=== PATIENT | female | born 1955 | race African-American/Black ===

== ENCOUNTER 2019-07-07 23:34 | Inpatient (IN) | payer OTHER ==
[~2019-07-07] VITALS: Ht 152.4 cm; Wt 77.8 kg
--- NOTE | ~2019-07-07 | EMS ---
[facility] [address] [place] [address] EMS Patient Care Report Name: RAUL TELLES Room #: PRE RETA Lanier#: [id number] Admission: Attend Phys: Discharge: Date of : 53 Report #: [id number] THIS REPORT FOR: //name// Report Transmitted: 07/07/2019 23:38 EMS Care Summary [facility] MED-ACT Incident [id number] @ 07/07/2019 22:51 Incident Location [facility] [address] [place] [address] Patient RAUL TELLES Female, 64 Years 1955 Patient Address [address] [place] [address] Patient History Chronic Obstructive Pulmonary Disease (COPD),Hypertension (HTN),Tracheostomy,Paraplegia,Chronic Respiratory Failure,Ventilator dependent, Patient Allergies Erythromycin,Zithromax,Amoxicillin, Patient Medications Buspirone, Alprazolam, Trazodone, Nitroglycerin, Levothyroxine, Humalog, Mirtazapine, Senna, Atorvastatin, Chief Complaint "She keeps de-satting." Disposition Transported No Lights/[place] Dispatch Reason Breathing Problem Transported To [facility] Narrative [facility] [address] [place] [address] EMS Patient Care Report Name: RAUL TELLES Room #: PRE RETA Lanier#: [id number] Admission: Attend Phys: Discharge: Date of : 53 Report #: [id number] History: Staff at the facility reported that the pt has had periodic episodes of hypoxemia. Staff reports the pt O2 saturation would drop as low as the 60s for a short period of time, and eventually come back up to her normal saturation. Staff reports they also noted the pt had a fever this evening of 100.3 F. Staff reports the pt has also seen a decline in her mental status. Staff reports the pt ate dinner tonight, but has since been less responsive. Pt does not verbalize any complaints to EMS. Staff denied the presence of any positive COVID-19 cases in the facility. No other complaints noted at this time. Assessment: Pt was found laying in semi-archer's position in bed. Pt is receiving mechanical ventilation via her tracheostomy. Pt ABCs intact. Pt responsive to verbal stimuli. See assessment tab for detailed physical exam findings and pertinent negatives. Treatment: Primary. VS. HPI. Physical exam. Pt moved via sheet to EMS stretcher. Pt taken off ventilator and manually ventilated w/ BVM and high-flow O2. Pt moved via stretcher to ambulance. Transport: Pt placed on sole stapler welt. 12-lead ECG. Bg assessment. Pt VS and condition remained stable during transport. Biocom to [facility]. Destination: Pt was brought via stretcher to ED room. Pt moved via sheet drag to hospital bed. Report to attending RN. Staff signed for pt due to pt's AMS. Care transferred. Initial Vitals @23:07P: 74,SpO2: 87, @23:20P: 79,R: 20,BP: 139/91,EtCO2: 60,SpO2: 86, @23:30P: 91,R: 13,BP: 175/90,GCS: 9,Glucose: 138,EtCO2: 64,SpO2: 98,Revised Trauma: 11, @23:06P: 74,R: 14,BP: 120/80,Pain: 0/10,GCS: 9,Temp: 97.5F,SpO2: 95,Revised Trauma: 11, @23:22P: 86,R: 19,EtCO2: 64,SpO2: 88,[place] Suspected: false Assessments @23:05MENTAL:Other,SKIN:HEENT:Neck/Airway: Other,Head/Face: No Abnormalities,Eyes: No Abnormalities,LUNG SOUNDS:Left Upper: No Abnormalities,Right Upper: No Abnormalities,Left Lower: No Abnormalities,Right Lower: No Abnormalities,ABDOMEN:Left Upper: No Abnormalities,Right Upper: No Abnormalities,Left Lower: No Abnormalities,Right Lower: No Abnormalities,PELVIS//GI:EXTREMITIES:Left Arm: No Abnormalities,Right Arm: No Abnormalities,Left Leg: No Abnormalities,Right Leg: No Abnormalities,PULSE:NEURO:No Abnormalities, Impression [facility] [address] [place] [address] EMS Patient Care Report Name: RAUL TELLES Room #: PRE M.R.#: [id number] Admission: Attend Phys: Discharge: Date of : 53 Report #: [id number] Shortness of breath Procedures @23:03ALS AssessmentResponse: UnchangedSucceeded@23:13Oxygen FlowRate: 15 Device: Bag Valve Mask (BVM) Response: UnchangedSucceeded@23:2212-Lead ECG Timeline 22:49,Call Received 22:49,Psap Call 22:51,Dispatched 22:53,En Route 22:57,On Scene 23:02,At Patient 23:03,ALS Assessment,Response: UnchangedSucceeded, 23:06,BP: 120/80 M,PULSE: 74,RR: 14 R,SPO2: 95 Ox,ETCO2: ,BG: ,PAIN: 0,GCS: 9, 23:07,BP: / M,PULSE: 74,RR: R,SPO2: 87 Ox,ETCO2: ,BG: ,PAIN: ,GCS: , 23:13,Oxygen FlowRate: 15 Device: Bag Valve Mask (BVM) Response: UnchangedSucceeded, 23:20,BP: 139/91 M,PULSE: 79,RR: 20 R,SPO2: 86 Ox,ETCO2: 60 ,BG: ,PAIN: ,GCS: , 23:22,Depart Scene 23:22,12-Lead ECG, 23:22,BP: / M,PULSE: 86,RR: 19 R,SPO2: 88 Ox,ETCO2: 64 ,BG: ,PAIN: ,GCS: , 23:28,At Destination 23:30,BP: 175/90 M,PULSE: 91,RR: 13 R,SPO2: 98 Ox,ETCO2: 64 ,B,PAIN: ,GCS: 9, 00:15,Call Closed Disclaimer v1.1 Copyright 2020 [employer] This EMS Care Summary contains data elements from the applicable legal record (which may be displayed differently). It is designed to provide pertinent information for the following purposes: continuity of care, clinical quality, and state data reporting. The complete legal record is available to ED staff and administrators of the receiving hospital in [employer]'s Patient Tracker. All data is provided "as is."
[2019-07-07 23:35] VITALS: BP 177/65
[2019-07-08] VITALS (67 sets, daily range): BP systolic 85–145; BP diastolic 39–80
[2019-07-08 00:02] LABS: ABSOLUTE NEUTROPHILS 10.8 thou/uL (1.4-8.2); BASOPHILS 0.6 % (0.0-2.0); EOSINOPHILS 4.9 % (0.0-3.0); HEMOGLOBIN 9.1 gm/dL (12.0-15.0); LYMPHOCYTES 13.7 % (24.0-44.0); MCH 24.9 pg (26.0-34.0); MCHC 30.4 g/dL (28.0-37.0); MCV 81.9 fL (80.0-100.0); MONOCYTES 10.3 % (1.0-8.0); PLATELET COUNT 510 thou/uL (150-400); POLYS 70.5 % (36.0-66.0); RBC 3.67 mil/uL (4.20-5.00); RDW 20.2 % (10.5-14.5); WBC 15.4 thou/uL (4.0-11.0)
[2019-07-08 00:17] LABS: ALBUMIN 2.5 g/dL (3.4-5.0); CALCIUM 9.2 mg/dL (8.5-10.1); CREATININE 0.5 mg/dL (0.6-1.0); POTASSIUM 4.5 mmol/L (3.5-5.1); TOTAL BILIRUBIN 0.2 mg/dL (<0.1-1.0)
[2019-07-08 00:51] LABS: BE(vivo) 0.1 mmol/L (-2 to +3); HCO3 29.1 mmol/L (22.0-26.0); PO2 96.1 mmHg (80.0-100.0); sO2 95.5 % (92.0-98.0)
[2019-07-08 00:53] LABS: pH 7.206 (7.360-7.450)
[2019-07-08 02:21] LABS: URINE BILIRUBIN NEGATIVE (Negative); URINE BLOOD TRACE (Negative); URINE CLARITY CLEAR; URINE COLOR YELLOW; URINE GLUCOSE-RANDOM* NEGATIVE (Negative); URINE KETONES NEGATIVE (Negative); URINE LEUKOCYTES-REFLEX NEGATIVE (Negative); URINE NITRITE-REFLEX NEGATIVE (Negative); URINE PROTEIN (DIPSTICK) TRACE (Negative); URINE SPECIFIC GRAVITY >= 1.030 (1.005-1.035); URINE UROBILINOGEN 0.2 E.U./dl (0.2-1.0)
[2019-07-08 04:40] LABS: HEMATOCRIT 24.8 % (37.0-47.0); HEMOGLOBIN 7.7 gm/dL (12.0-15.0); MCH 25.1 pg (26.0-34.0); MCHC 31.1 g/dL (28.0-37.0); MCV 80.6 fL (80.0-100.0); RBC 3.08 mil/uL (4.20-5.00); RDW 18.9 % (10.5-14.5); WBC 11.6 thou/uL (4.0-11.0)
[2019-07-08 05:05] LABS: CALCIUM 8.8 mg/dL (8.5-10.1); CREATININE 0.6 mg/dL (0.6-1.0); POTASSIUM 4.4 mmol/L (3.5-5.1)
[2019-07-08 05:25] LABS: BE(vivo) 2.4 mmol/L (-2 to +3); HCO3 26.8 mmol/L (22.0-26.0); PCO2 40.7 mmHg (35.0-45.0); PO2 160.6 mmHg (80.0-100.0); pH 7.437 (7.360-7.450); sO2 99.1 % (92.0-98.0)
[2019-07-08 23:54] LABS: HEMATOCRIT 21.5 % (37.0-47.0)
[2019-07-09] VITALS (53 sets, daily range): BP systolic 98–181; BP diastolic 49–104
[2019-07-09 06:29] LABS: HEMOGLOBIN 6.6 gm/dL (12.0-15.0)
[2019-07-09 06:30] LABS: HEMATOCRIT 20.5 % (37.0-47.0)
[2019-07-09 13:50] LABS: HEMATOCRIT 25.8 % (37.0-47.0); HEMOGLOBIN 8.2 gm/dL (12.0-15.0)
[2019-07-10] VITALS (67 sets, daily range): BP systolic 108–165; BP diastolic 52–108
[2019-07-10 05:23] LABS: ABSOLUTE NEUTROPHILS 9.7 thou/uL (1.4-8.2); BASOPHILS 0.7 % (0.0-2.0); EOSINOPHILS 8.9 % (0.0-3.0); HEMATOCRIT 23.9 % (37.0-47.0); HEMOGLOBIN 7.5 gm/dL (12.0-15.0); LYMPHOCYTES 4.4 % (24.0-44.0); MCH 25.3 pg (26.0-34.0); MCHC 31.5 g/dL (28.0-37.0); MCV 80.2 fL (80.0-100.0); PLATELET COUNT 282 thou/uL (150-400); RBC 2.98 mil/uL (4.20-5.00); RDW 18.6 % (10.5-14.5); WBC 12.7 thou/uL (4.0-11.0)
[2019-07-10 05:53] LABS: CALCIUM 8.5 mg/dL (8.5-10.1); CREATININE 0.5 mg/dL (0.6-1.0)
[2019-07-11] VITALS (21 sets, daily range): BP systolic 134–209; BP diastolic 65–104
[2019-07-11 10:10] LABS: ABSOLUTE NEUTROPHILS 10.7 thou/uL (1.4-8.2); BASOPHILS 0.3 % (0.0-2.0); EOSINOPHILS 1.8 % (0.0-3.0); HEMATOCRIT 25.1 % (37.0-47.0); HEMOGLOBIN 7.9 gm/dL (12.0-15.0); LYMPHOCYTES 2.4 % (24.0-44.0); MCH 25.1 pg (26.0-34.0); MCHC 31.4 g/dL (28.0-37.0); MCV 79.8 fL (80.0-100.0); MONOCYTES 8.4 % (1.0-8.0); PLATELET COUNT 287 thou/uL (150-400); POLYS 87.1 % (36.0-66.0); RBC 3.15 mil/uL (4.20-5.00); RDW 19.3 % (10.5-14.5); WBC 12.3 thou/uL (4.0-11.0)
[2019-07-11 10:27] LABS: CALCIUM 7.8 mg/dL (8.5-10.1); CREATININE 0.5 mg/dL (0.6-1.0)
[2019-07-12] VITALS (21 sets, daily range): BP systolic 129–210; BP diastolic 66–115
[2019-07-12 05:08] LABS: CALCIUM 8.3 mg/dL (8.5-10.1); CREATININE 0.3 mg/dL (0.6-1.0)
[2019-07-12 05:30] LABS: POTASSIUM 4.3 mmol/L (3.5-5.1)
[2019-07-13 03:21] VITALS: BP 177/91
[2019-07-13 09:00] VITALS: BP 164/86
--- NOTE | 2019-07-13 10:30 | 2DMMODE ---
[facility] [address] [place] [address] 2 D/M-MODE ECHOCARDIOGRAM Name: RAUL TELLES Room #: 208-P ADM IN M.R.#: [id number] Admission: 07/08/19 Attend Phys: Alvaro Perez Discharge: Date of : 53 Report #: [id number] THIS REPORT FOR: cc: [facility] - Clinic physician unknown [facility] - Clinic physician unknown Wing Chavez MD ~ APPROVED REPORT Study performed: 07/13/2019 09:39:06 EXAM: Comprehensive 2D, Doppler, and color-flow Echocardiogram Patient Location: Bedside Room #: 208 Status: routine BSA: 1.80 HR: 74 bpm BP: 177/91 mmHg Rhythm: NSR Other Information Study Quality: Good/no mobility. Trach/vent dependent/paraplegic Indications Evaluate for CHF. 2D Dimensions RVDd: 39.74 mm IVSd: 13.07 (7-11mm) LVOT Diam: 20.78 (18-24mm) LVDd: 46.71 mm PWd: 11.71 (7-11mm) Ascending Ao: 32.71 (22-36mm) LVDs: 35.01 (25-40mm) Aortic Root: 30.54 mm Volumes Left Atrial Volume (Systole) Single Plane 4CH: 41.90 mL Single Plane 2CH: 51.69 mL LA ESV Index: 28.00 mL/m2 Aortic Valve AoV Peak Hern[place].: 1.46 m/s AO Peak Gr.: 8.49 mmHg LVOT Max P.14 mmHg LVOT Max V: 1.13 m/s GA Vmax: 2.64 cm2 [facility] [address] [place] [address] 2 D/M-MODE ECHOCARDIOGRAM Name: RAUL TELLES Room #: 208-P [facility] IN ..#: [id number] Admission: 07/08/19 Attend Phys: Alvaro Smith Discharge: Date of : 53 Report #: [id number] Mitral Valve E/A Ratio: 0.7 MV Decel. Time: 179.76 ms MV E Max Hernesto.: 0.75 m/s MV A Hern[place].: 1.04 m/s MV PHT: 52.13 ms IVRT: 89.97 ms Pulmonary Valve PV Peak Hern[place].: 1.12 m/s PV Peak Gr.: 4.98 mmHg Pulmonary Vein P Vein S: 0.95 m/s P Vein A: 0.39 m/s P Vein D: 0.73 m/s P Vein A Dur.: 128.0 msec P Vein S/D Ratio: 1.30 Tricuspid Valve TR Peak Hernesto.: 3.52 m/s RAP Estimate: 10.00 mmHg TR Peak Gr.: 50.00 mmHg PA Pressure: 60.00 mmHg Left Ventricle The left ventricle is normal size. There is normal LV segmental wall motion. Mild concentric left ventricular hypertrophy. Left ventricular systolic function is normal. LVEF is 55%. Mild diastolic dysfunction is present (impaired relaxation pattern). Right Ventricle The right ventricle is normal size. The right ventricular systolic function is normal. Atria The left atrium size is normal. The right atrium size is normal. Aortic Valve The aortic valve is normal in structure. No aortic regurgitation is present. There is no aortic valvular stenosis. Mitral Valve The mitral valve is normal in structure. Mild mitral regurgitation. No evidence of mitral valve stenosis. Tricuspid Valve The tricuspid valve is normal in structure. Mild tricuspid [facility] [address] [place] [address] 2 D/M-MODE ECHOCARDIOGRAM Name: RAUL TELLES Room #: 208-P [facility] IN M.R.#: [id number] Admission: 07/08/19 Attend Phys: Alvaro Smith Discharge: Date of : 53 Report #: [id number] regurgitation. Estimated PAP is 54mmHg. Pulmonic Valve The pulmonary valve is normal in structure. Mild pulmonic regurgitation. Great Vessels The aortic root is normal in size. The ascending aorta is normal in size. IVC is normal in size and collapses <50% with inspiration. Pericardium There is no pericardial effusion. <Conclusion> The left ventricle is normal size. Mild concentric left ventricular hypertrophy. Left ventricular systolic function is normal. Mild diastolic dysfunction is present (impaired relaxation pattern). The right ventricle is normal size. The left atrium size is normal. The aortic valve is normal in structure. Mild mitral regurgitation. Mild tricuspid regurgitation. Estimated PAP is 54mmHg. <ELECTRONICALLY SIGNED> By: Wing Chavez MD 07/13/19 1028 1028 1028 Wing Chavez MD /INF
[2019-07-13 11:07] VITALS: BP 163/99
[2019-07-13 12:47] LABS: HEMATOCRIT 29.1 % (37.0-47.0); HEMOGLOBIN 9.4 gm/dL (12.0-15.0)
[2019-07-13 12:59] LABS: ALBUMIN 2.3 g/dL (3.4-5.0); CALCIUM 8.7 mg/dL (8.5-10.1); CREATININE 0.5 mg/dL (0.6-1.0); POTASSIUM 3.2 mmol/L (3.5-5.1); TOTAL BILIRUBIN 0.3 mg/dL (<0.1-1.0); TOTAL PROTEIN 7.4 g/dL (6.4-8.2)
[2019-07-13 20:31] VITALS: BP 144/78
[2019-07-13 23:45] VITALS: BP 168/92
[2019-07-14] VITALS (11 sets, daily range): BP systolic 99–137; BP diastolic 53–79
[2019-07-14 09:58] LABS: CALCIUM 8.7 mg/dL (8.5-10.1); CREATININE 0.6 mg/dL (0.6-1.0)
[2019-07-14 10:00] LABS: POTASSIUM 4.3 mmol/L (3.5-5.1)
[2019-07-14] MEDS ORDERED: CEFDINIR300 MG PO (11:27)
[2019-07-14] MEDS ORDERED: HYDROCODON-ACE1 EAC7 PO (11:27)
[2019-07-14] MEDS ORDERED: ENOXAPARIN40 MG/0.1 SUBQ (11:27)
[2019-07-14] MEDS ORDERED: LOPRESSOR25 PO (11:27)
[2019-07-14] MEDS ORDERED: ATIVAN0.5 M1 PO (11:27)
[2019-07-14] MEDS ORDERED: IPRAT-ALBUT 0.5-3 ML INH (11:27)
[2019-07-14] MEDS ORDERED: POTASSIUM20 PO (11:35)
[2019-07-14] MEDS ORDERED: ZESTRIL5 MG PO (11:35)
[2019-07-14] MEDS ORDERED: ADMELOG100 UNIT/1 SUBQ (11:35)
[2019-07-14] MEDS ORDERED: LASIX 40 MG TAB40 MG PO (11:36)
== END 2019-07-14 15:58 | DRG 870 ==
LOC: ER 23:34 → ICU 07-08 01:58 → EROBS 07-08 01:58 → ICU 07-08 02:31 → 2N 07-12 20:00 → ICU 07-14 06:35
PROVIDERS: Emergency Medicine; Hospitalist; Internal Medicine Pulmonary Disease; Nurse Practitioner Family; Specialist; ADMIT Hospitalist
PROC: 5A1955Z Respiratory Ventilation, Greater than 96 Consecutive Hours (ICD-10-PCS; principal; 2019-07-08)
PROC: 02HV33Z Insertion of Infusion Device into Superior Vena Cava, Percutaneous Approach (ICD-10-PCS; 2019-07-08)
PROC: 30233N1 Transfusion of Nonautologous Red Blood Cells into Peripheral Vein, Percutaneous Approach (ICD-10-PCS; 2019-07-09)
DX: A41.9 Sepsis, unspecified organism (principal); J15.211 Pneumonia due to Methicillin susceptible Staphylococcus aureus; J96.22 Acute and chronic respiratory failure with hypercapnia; G92 Toxic encephalopathy; J96.21 Acute and chronic respiratory failure with hypoxia; G82.20 Paraplegia, unspecified; E46 Unspecified protein-calorie malnutrition; K56.7 Ileus, unspecified; K94.23 Gastrostomy malfunction; Z99.11 Dependence on respirator [ventilator] status; J44.0 Chronic obstructive pulmonary disease with (acute) lower respiratory infection; G12.21 Amyotrophic lateral sclerosis; E03.9 Hypothyroidism, unspecified; G89.4 Chronic pain syndrome; R13.10 Dysphagia, unspecified; D50.9 Iron deficiency anemia, unspecified; E11.43 Type 2 diabetes mellitus with diabetic autonomic (poly)neuropathy; I25.5 Ischemic cardiomyopathy; R74.0 Nonspecific elevation of levels of transaminase and lactic acid dehydrogenase [LDH]; J22 Unspecified acute lower respiratory infection; B95.61 Methicillin susceptible Staphylococcus aureus infection as the cause of diseases classified elsewhere; K75.9 Inflammatory liver disease, unspecified; T17.990A Other foreign object in respiratory tract, part unspecified in causing asphyxiation, initial encounter; G72.9 Myopathy, unspecified; Z88.8 Allergy status to other drugs, medicaments and biological substances; Z88.1 Allergy status to other antibiotic agents; Z91.040 Latex allergy status; Z82.49 Family history of ischemic heart disease and other diseases of the circulatory system; Z83.6 Family history of other diseases of the respiratory system; Z68.33 Body mass index [BMI] 33.0-33.9, adult; X58.XXXA Exposure to other specified factors, initial encounter; Y93.89 Activity, other specified; Y92.89 Other specified places as the place of occurrence of the external cause; Y99.8 Other external cause status; Z03.818 Encounter for observation for suspected exposure to other biological agents ruled out
CPT/HCPCS: 10078; 10081; 27000; 85076